=== PATIENT | male | born 1960 | race Caucasian/White ===

== ENCOUNTER 2018-11-13 11:37 | Emergency (ER) | payer MEDICAID, SELFPAY ==
[2018-11-13 11:40] VITALS: BP 166/77; PULSE 96; RESP 28; TEMP 36.6; O2SAT 100; BMI 21.2
--- NOTE | 2018-11-13 12:05 | EKG12_ITS ---
Test Reason : Blood Pressure : / mmHG Vent. Rate : 079 BPM Atrial Rate : 079 BPM P-R Int : 140 ms QRS Dur : 094 ms QT Int : 418 ms P-R-T Axes : 069 065 070 degrees QTc Int : 479 ms Normal sinus rhythm Normal ECG Confirmed by KAYKAY KAMINSKI, AGUSTÍN ([id number]), video editor JULIA GIBSON ([id number]) on 11/15/2018 1:36:32 PM Referred By: DIAMOND Confirmed By:AGUSTÍN MCCRACKEN MD
--- NOTE | 2018-11-13 12:05 | CT_ITS ---
STUDY: CT ABDOMEN AND PELVIS WITHOUT CONTRAST REASON FOR EXAM: Male, 58 years old. Weakness, nausea and vomiting RADIATION DOSAGE (If Supplied By Facility): CTDIvol = ( 6.13 ) mGy, DLP = ( 287.67 ) mGycm TECHNIQUE: Transaxial images were obtained from the dome of the diaphragm to the symphysis pubis without oral contrast, and without intravenous contrast. Sagittal and coronal images were reconstructed. Individualized dose optimization techniques were used for this CT. COMPARISON: None. FINDINGS: There are chronic interstitial fibrotic changes of the lung bases. The visualized portions of the heart are within normal limits. Normal liver. Normal gallbladder and extrahepatic biliary system. Normal spleen. Normal pancreas. Normal bilateral adrenal glands. Normal right kidney. Normal left kidney. Normal visualized stomach. Normal small intestine. Normal colon. There are surgical clips in the region of the appendix consistent with a prior appendectomy. There is diffuse atherosclerotic calcification of the abdominal aorta, without a demonstrated aneurysm. Normal inferior vena cava. Normal retroperitoneum. Normal urinary bladder. There are prostatic calcifications. Normal abdominal wall. There are diffuse degenerative changes of the visualized lumbar spine. CT/Abdomen/Pelvis without Cont IMPRESSION: No suspicious solid organ abnormality No CT evidence of an acute inflammatory process, previous appendectomy Retained stool noted throughout the colon No free intraperitoneal fluid, air, or suspicious adenopathy Electronically Signed: Rob Ontiveros MD at 13:30 EDT , Service support ,
[2018-11-13 12:14] LABS: Absolute Lymphocyte Count 2.32 X10^3/uL (0.83-4.51); Absolute Neutrophil Count 5.1 X10^3/uL (2.0-7.7); Basophil# 0.03 X10^3/uL; Basophil% 0.3 % (0-1); Eosinophil# 0.14 X10^3/uL; Eosinophils% 1.6 % (0-5); Hematocrit 44.6 % (40-54); Hemoglobin 15.3 g/dL (13.0-16.5); Lymphocyte # 2.32 X10^3/ul (4.0); Lymphocyte % 26.1 % (19-41); Mean Corp Hgb Conc 34.3 g/dL (32-36); Mean Corpuscular Hgb 33.3 pg (27.0-32.0); Mean Corpuscular Volume 97.2 fL (80-94); Mean Platelet Vol. 10.1 fl (6.2-12.0); Monocyte# 1.28 X10^3/uL; Monocyte% 14.4 % (0-10); NRBC Flagged by Analyzer 0 % (0-5); Neutrophil # 5.07 X10^3/uL (2.7-7.7); Platelet Count 259 K/mm3 (150-450); RBC Distribution Width CV 13.5 % (11.6-14.6); RBC Distribution Width SD 48.2 fl (35.1-43.9); Red Blood Count 4.59 M/mm3 (4.6-6.2); White Blood Count 8.9 K/mm3 (4.4-11.0)
[2018-11-13] MEDS: Ondansetron 4 MG/2 ML Vial IV (12:20)
[2018-11-13] MEDS: LORazepam 2 MG/ML Syringe 1 MG IV (12:20)
[2018-11-13] MEDS: 0.9% Normal Saline 1,000 ML 125 ML IV (12:20)
[2018-11-13 12:28] LABS: ALB/GLOB Ratio 1.1 RATIO (0.9-2.4); AST(SGOT) 12 U/L (15-37); Alanine Aminotransfer ALT/SGPT 15 U/L (16-61); Albumin, Serum 3.9 g/dL (3.2-5.0); Alkaline Phosphatase 119 U/L (45-117); Anion Gap 11 (5-15); BUN 13 mg/dL (7-18); BUN/Creat Ratio 10.1 RATIO (10-20); Calcium,Total 9.5 mg/dL (8.5-10.1); Chloride 105 mmol/L (98-107); Creatinine, Serum 1.29 mg/dL (0.70-1.30); EST Glomerular Filtration Rate 60 mL/min (>60); Est Glom Filt Rate - Afr Amer 73 mL/min (>60); Estimated Creatinine Clearance 59.35 ml/min; Globulin 3.7 g/dL (2.2-4.2); Glucose 132 mg/dL (74-106); Potassium 3.1 mmol/L (3.5-5.1); Protein, Total 7.6 g/dL (6.4-8.2); Sodium Level 135 mmol/L (136-145)
[2018-11-13 12:46] VITALS: TEMP 36.7
[2018-11-13 13:04] LABS: Lactic Acid 4.7 mmol/L (0.4-2.0)
--- NOTE | 2018-11-13 13:04 | ED.RN ---
LAB CALL WITH CRITICAL LACTIC ACID OF 4.7. VERBALLY REPORTED TO WALDO NORMAN RN, JOSE RN, AND DR. FIELDS.
[2018-11-13 13:07] VITALS: BP 118/71; PULSE 88; RESP 14; TEMP 37; O2SAT 92
[2018-11-13 14:16] LABS: Bacteria 0 SEEN /hpf (None Seen); Mucous, Urine 0 SEEN /hpf (<or=2+); Red Blood Cells-Urine 0 SEEN /hpf (0-5); Squamous Epithelial Cells - UA 0 SEEN /hpf (0-5)
[2018-11-13 14:18] LABS: Color, Urine Yellow (Yellow); Glucose, Dipstick Normal (Normal); Ketone-Dipstick 50 mg/dl (Negative); Leukocyte Esterase-Dipstick 25 /ul (Negative); Nitrite-Dipstick Negative (Negative); Occult Blood-Urine Negative /ul (Negative); Protein-Dipstick Negative (Negative); Urine Bilirubin Dipstick Negative (Negative); Urine Clarity Clear (Clear); Urine Urobilinogen 1 mg/dl (Normal)
[2018-11-13] MEDS: 0.9% Normal Saline 1,000 ML 999 ML IV (14:18)
[2018-11-13 14:29] LABS: White Blood Cells 0-5 SEEN /hpf (0-5)
--- NOTE | 2018-11-13 14:40 | ED.DCSUM_ITS ---
- ER Visit Summary Date of Service: 11/13/18 Chief Complaint: [Abdominal pain] History of Present Illness: The patient is a 58 M [presents to the emergency department with symptoms that started this morning. Patient states that he went to fold some closed and began feeling very weak. Patient developed some joint pains. He felt very nauseated and had some dry heaves. He denies any chest pain or shortness of breath. Patient states that he is missed his last 2 days of medications because they were at the [email or web address] and he could not get there for whatever reason. Patient takes medication mostly for mental illness issues and schizophrenia. Patient states that he has been under increased stress of late. He denies any fevers or recent illness.] Physical Examination: [HEENT-PERRLA, EOMI. Cranial nerves II through XII grossly intact. TMs clear. Mucous membranes moist. No adenopathy. Patient seems somewhat anxious and seems to be hyperventilating. Cardiovascular-regular rate and rhythm without murmur or ectopy Lungs-clear to auscultation, chest wall stable without crepitus or subcu emphysema Abdomen-normoactive bowel sounds, soft area patient has some mild diffuse tenderness to palpation. There is no rebound, rigidity, or perineal signs. Extremities-intact ?4, normal range of motion, normal pulses, atraumatic] Test Results: [CBC with differential obtained showed a white count of 8.9, hemoglobin 15, hematocrit 45, placed 259. Chemistries unremarkable. Liver enzymes were normal. Urinalysis normal. Troponin is less than 0.15. EKG obtain a regular sinus rhythm with a ventricular rate of 79 bpm with no acute ST segment changes. CT scan of the M pelvis without contrast showed nothing acute.] Emergency Department Course and Treatment: [Given normal saline 2 L bolus. He was given Zofran 4 mg IV. Patient's felt significant improved after treatment.] Treatment Plan: Patient will be given a prescription for Zofran. Patient advised to push fluids.] Disposition: [Discharged home stable condition.] Impression: [Abdominal pain-etiology uncertain ] This note was generated with [employer] dictation software. It may contain incorrect words, spelling, and punctuation that were not noted in review of the chart prior to signing ED Disposition - Plan for ED Patient: [facility]errals[facility],Out of [Primary Care Provider] -
--- NOTE | 2018-11-13 14:43 | ED.DEP ---
ED Disposition - Plan for ED Patient: Instructions: ABDOMINAL PAIN, Unkown Cause, (Male) Prescriptions: Ondansetron [Zofran Odt] 4 mg PO Q8H PRN PRN #10 tab PRN Reason: Nausea Prescription Printed Referrals: [facility] [address] Doctor,Out of [Primary Care Provider] - 3-5 Days
[2018-11-13 15:08] VITALS: BP 141/88; PULSE 81; RESP 16; O2SAT 98
[2018-11-13 15:12] VITALS: BP 141/88; PULSE 88; RESP 16; TEMP 36.9; O2SAT 98
[2018-11-13 16:20] LABS: Reflex Lactate? Y
== END 2018-11-13 15:16 | disposition home or self-care (01) ==
LOC: ED 12:31
PROVIDERS: Emergency Provider Emergency Medicine
DX: R10.9 Unspecified abdominal pain (principal); M25.50 Pain in unspecified joint; R53.1 Weakness; R11.0 Nausea; F20.9 Schizophrenia, unspecified; Z79.82 Long term (current) use of aspirin; Z79.899 Other long term (current) drug therapy; Z72.0 Tobacco use
CPT/HCPCS: 74176; 80053; 81001; 83605; 84484; 85025; 93005; 96361; 96374; 96375; 99285; J7030; A4216; J2405

== ENCOUNTER 2019-01-22 14:19 | Emergency (ER) | payer MEDICAID, SELFPAY ==
[2019-01-22 14:20] VITALS: BP 115/73; PULSE 103; RESP 16; TEMP 36.9; O2SAT 98; BMI 20.8
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
--- NOTE | 2019-01-22 14:48 | ED.RN ---
pt medications placed in tote with belongings bag.
[2019-01-22 14:52] LABS: Absolute Lymphocyte Count 1.45 X10^3/uL (0.83-4.51); Absolute Neutrophil Count 6.4 X10^3/uL (2.0-7.7); Basophil# 0.05 X10^3/uL; Basophil% 0.6 % (0-1); Eosinophil# 0.09 X10^3/uL; Hematocrit 48.1 % (40-54); Hemoglobin 16.3 g/dL (13.0-16.5); Lymphocyte # 1.45 X10^3/ul (4.0); Lymphocyte % 16.5 % (19-41); Mean Corp Hgb Conc 33.9 g/dL (32-36); Mean Corpuscular Volume 94.5 fL (80-94); Mean Platelet Vol. 9.8 fl (6.2-12.0); Monocyte# 0.77 X10^3/uL; Monocyte% 8.8 % (0-10); NRBC Flagged by Analyzer 0 % (0-5); Neutrophil # 6.39 X10^3/uL (2.7-7.7); Neutrophil % 72.5 % (47-70); Platelet Count 270 K/mm3 (150-450); RBC Distribution Width CV 12.9 % (11.6-14.6); Red Blood Count 5.09 M/mm3 (4.6-6.2); White Blood Count 8.8 K/mm3 (4.4-11.0)
[2019-01-22 15:04] LABS: Anion Gap 7 (5-15); BUN 16 mg/dL (7-18); BUN/Creat Ratio 14.5 RATIO (10-20); Calcium,Total 9.4 mg/dL (8.5-10.1); Chloride 105 mmol/L (98-107); EST Glomerular Filtration Rate 72 mL/min (>60); Est Glom Filt Rate - Afr Amer 88 mL/min (>60); Estimated Creatinine Clearance 66.67 ml/min; Glucose 125 mg/dL (74-106); Potassium 4.2 mmol/L (3.5-5.1); Sodium Level 137 mmol/L (136-145)
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
[2019-01-22 15:34] LABS: Alcohol, Blood (Medical)-Serum < 3.0 mg/dL
--- NOTE | 2019-01-22 15:53 | CM.ED ---
Social Work All results back, medically cleared per Dr. Moses. Clinical information faxed to [facility]. Pending approval. Kylie Greenfield MSW, KAMILLA
[2019-01-22 16:36] LABS: Amphetamine Urine VISTA NEGATIVE (<1000 ng/mL); Barbiturate Urine VISTA NEGATIVE (< 200 ng/mL); Benzodiazepine Urine VISTA NEGATIVE (< 200 ng/mL); Cocaine Urine VISTA NEGATIVE (< 300 ng/mL); Ecstacy Urine VISTA NEGATIVE (< 500 ng/mL); Methadone Urine VISTA NEGATIVE (< 300 ng/mL); PCP Urine VISTA NEGATIVE (< 25 ng/mL); THC Urine VISTA POSITIVE (< 50 ng/mL); Vista UDS pH Range 5
[2019-01-22 17:43] VITALS: RESP 18; O2SAT 97
[2019-01-22 18:07] VITALS: BP 137/81; PULSE 80; RESP 18; O2SAT 100
--- NOTE | 2019-01-22 18:17 | CM.ED ---
Social Work Telephone call to [facility] polo, referral continues to be reviewed. They are to call this rn social work with update. Kylie Greenfield MSW, KAMILLA
--- NOTE | 2019-01-22 18:42 | EKG12_ITS ---
Test Reason : Blood Pressure : / mmHG Vent. Rate : 061 BPM Atrial Rate : 061 BPM P-R Int : 144 ms QRS Dur : 088 ms QT Int : 402 ms P-R-T Axes : 058 073 078 degrees QTc Int : 404 ms Normal sinus rhythm Normal ECG Confirmed by SERA KAMINSKI, MÓNICA ([id number]), news videotape editor EMMETT BAUM ([id number]) on 01/24/2019 12:05:59 PM Referred By: NATHEN Confirmed By:MÓNICA ZAMORA MD
[2019-01-22 20:00] VITALS: RESP 18
--- NOTE | 2019-01-22 22:00 | CM.ED ---
Social Work Telephone call from Manohar Linder. Patient has been accepted. Unit: Psych ED. Nurse to Nurse report: [phone] xt: [id number]. Accepting Doctor: Dr. Cisneros. Updated patient, and medical team, all agreeable to plan. [place] faxed. Cristh[facility] Davidson to provide transportation. Kylie MARSH, KAMILLA
[2019-01-22 23:00] VITALS: BP 143/84; PULSE 71; RESP 16; O2SAT 94
[2019-01-22 23:09] VITALS: PULSE 71; RESP 18
[2019-01-23 01:00] VITALS: RESP 14
--- NOTE | 2019-01-23 01:29 | ED.RN ---
patient care report to [facility] at this time
== END 2019-01-23 01:35 ==
PROVIDERS: Emergency Provider Emergency Medicine
DX: F20.9 Schizophrenia, unspecified (principal); F32.9 Major depressive disorder, single episode, unspecified; R45.850 Homicidal ideations; R45.851 Suicidal ideations; F31.9 Bipolar disorder, unspecified; Z86.73 Personal history of transient ischemic attack (TIA), and cerebral infarction without residual deficits; Z79.82 Long term (current) use of aspirin; Z79.899 Other long term (current) drug therapy; Z72.0 Tobacco use
CPT/HCPCS: 80048; 80307; 80320; 85025; 93005; 99284; G0480